=== PATIENT | female | born 1950 ===

== ENCOUNTER 2017-11-20 08:00 | Day surgery (SDC) | payer MEDICARE, OTHER ==
[2017-11-20] MEDS ORDERED: Lactated Ringer's 500 ML IV ONE (08:39)
[2017-11-20 08:43] VITALS: TEMP 96.8
[2017-11-20] MEDS ORDERED: Midazolam 2 MG/2 ML VIAL ONE (10:14)
[2017-11-20] MEDS ORDERED: Propofol 10 mg/ml Inj (20 ML) ONE ×2 (10:14→10:47)
[2017-11-20 11:09] VITALS: BP 117/66; PULSE 67; RESP 18; O2SAT 100
== END 2017-11-20 11:13 | disposition home or self-care (01) ==
LOC: H.ENDO 08:00
PROVIDERS: ATTEND Internal Medicine Gastroenterology
DX: Z12.11 Encounter for screening for malignant neoplasm of colon (principal); J45.909 Unspecified asthma, uncomplicated; E78.5 Hyperlipidemia, unspecified; I10 Essential (primary) hypertension; K64.8 Other hemorrhoids; K57.30 Diverticulosis of large intestine without perforation or abscess without bleeding
CPT/HCPCS: 45378; J2001; J2250; J2704; J7120

== ENCOUNTER 2018-08-03 16:52 | Inpatient (IN) | payer MEDICARE, OTHER ==
[2018-08-03] MEDS ORDERED: Sodium Chloride 0.9% 1,000 ML IV STA (17:50)
--- NOTE | 2018-08-03 17:56 | ED PDOC ---
HPI: Chest Pain Time Seen by Provider: 08/03/18 17:36 Chief Complaint (Nursing): Palpitations Chief Complaint (Provider): palpations History Per: Patient History/Exam Limitations: no limitations Onset/Duration Of Symptoms: Days (today morning) Current Symptoms Are (Timing): Still Present Additional Complaint(s): Pt. with palpitations since today morning with dizziness, blurry vision. All present when she woke up. Yesterday she had no issues. Has chest pain and dy spnea with the palpitations off and on. No nausea, vomit, diarrhea, headaches, abd pain, numbness, tingles. Has weakness all over. No recent injury, bleeding. Past Medical History Reviewed: Nursing Documentation, Vital Signs Vital Signs: Last Vital Signs Temp 97.2 F L 08/03/18 17:23 Pulse Resp 113 H 08/03/18 17:23 BP 90/70 L 08/03/18 17:23 Pulse Ox 97 08/03/18 17:23 - Medical History PMH: Arthritis, Asthma, HTN, Hypercholesterolemia Denies: Chronic Kidney Disease Other PMH: tachycardia - Surgical History Surgical History: Endoscopy - Family History Family History: States: Unknown Family Hx - Immunization History Hx Tetanus Toxoid Vaccination: Yes Hx Influenza Vaccination: Yes Hx Pneumococcal Vaccination: Yes - Home Medications Home Medications: Ambulatory Orders Medication Instructions Recorded Hydrochlorothiazide [HCTZ] 25 mg PO DAILY 11/16/15 Montelukast [Singulair] 10 mg PO DAILY 11/16/15 Simvastatin [Zocor] 40 mg PO DAILY 11/16/15 - Allergies Allergies/Adverse Reactions: Allergies Allergy/AdvReac Type Severity Reaction Status Date / Time Iodinated Contrast- Oral and Allergy ITCHING Verified 08/03/18 17:22 IV Dye [Iodinated Contrast Media - Oral and] Sulfa (Sulfonamide Allergy ITCHING Verified 08/03/18 17:22 Antibiotics) Review of Systems ROS Statement: Except As Marked, All Systems Reviewed And Found Negative Constitutional: Positive for: Weakness Cardiovascular: Positive for: Chest Pain, Palpitations, Light Headedness Neurological: Positive for: Weakness, Dizziness Physical Exam - Reviewed Nursing Documentation Reviewed: Yes Vital Signs Reviewed: Yes - Physical Exam Appears: Positive for: Uncomfortable Head Exam: Positive for: ATRAUMATIC, NORMAL INSPECTION, NORMOCEPHALIC Skin: Positive for: Normal Color, Warm, DRY Eye Exam: Positive for: EOMI, Normal appearance, PERRL ENT: Positive for: Normal ENT Inspection Neck: Positive for: Normal, Painless ROM Cardiovascular/Chest: Positive for: Tachycardia, Irregularly Irregular Respiratory: Positive for: CNT, Normal Breath Sounds Gastrointestinal/Abdominal: Positive for: Normal Exam, Soft. Negative for: Tenderness Back: Positive for: Normal Inspection. Negative for: L CVA Tenderness, R CVA Tenderness Extremity: Positive for: Normal ROM. Negative for: Tenderness, Pedal Edema Neurological/Psych: Positive for: Awake, Alert, Normal Tone, Oriented, heel nail rasper II- XII. Negative for: Lethargic, Listless, Motor/Sensory Deficits - Laboratory Results Result Diagrams: 08/03/18 18:36 08/03/18 18:36 Interpretation Of Abn Labs: 0.154 trop - ECG ECG: Positive for: Interpreted By Me, Viewed By Me Interpretation Of Abn EKG: afib O2 Sat by Pulse Oximetry: 97 - Radiology X-Ray: Interpreted by Me, Viewed By Me X-Ray Interpretation: No Acute Disease - CT Scan/US ct Other Rad Studies (CT/US): Read By Radiologist Other Rad Interpretation: no acute - Progress ED Course And Treament: 2022: Stable. AAOx3. Pain free. HR controlled with no drip. Pt. admitted to Dr. Avendaño. He wants Dr. Dial for cards. 2029: Spoke with Dr. Dial. States continue lovenox. No aspirin. Will consult. Disposition - Clinical Impression Clinical Impression: Afib, Elevated troponin - Patient ED Disposition Is Patient to be Admitted: No Counseled Patient/Family Regarding: Studies Performed, Diagnosis - Disposition Disposition Time: 19:00 Condition: FAIR - Pt Status Changed To: Hospital Disposition Of: Inpatient - Admit Certification Admit to Inpatient:: After my assessment, the patient will require hospitalization for at least two midnights. This is because of the severity of symptoms shown, intensity of services needed, and/or the medical risk in this patient being treated as an outpatient. - POA Present On Arrival: None
[2018-08-03 18:42] LABS: BASO % 0.3 % (0.0-2.0); EOS % 0.8 % (0.0-4.0); LYMPH # 1.7 K/uL (1.0-4.3); LYMPH % 29.7 % (20.0-40.0); MEAN CELL VOLUME 86.7 fl (81.0-99.0); MEAN CORPUSCULAR HEMOGLOBIN 29.1 pg (27.0-31.0); MEAN CORPUSCULAR HGB CONC 33.6 g/dL (33.0-37.0); MEAN PLATELET VOLUME 9.1 fl (7.2-11.7); MONO # 0.4 K/uL (0.0-0.8); NEUT # 3.5 K/uL (1.8-7.0); NEUT % 62.2 % (50.0-75.0); NRBC % 0.2 % (0.0-0.0); RBC 4.45 Mil/uL (3.80-5.20); RED CELL DISTRIBUTION WIDTH 14.4 % (11.5-14.5); WHITE BLOOD COUNT 5.7 K/uL (4.8-10.8)
[2018-08-03 18:46] LABS: INR 1.1
[2018-08-03 18:49] LABS: PARTIAL THROMBOPLASTIN TIME 32.5 Seconds (25.6-37.1)
[2018-08-03 18:52] LABS: ALB/GLOB RATIO 1.6 (1.0-2.1); ALBUMIN 4.2 g/dL (3.5-5.0); ALT/SGPT 36 U/L (9-52); AST/SGOT 31 U/L (14-36); BLOOD UREA NITROGEN 28 mg/dl (7-17); CALCIUM 9.2 mg/dL (8.4-10.2); GFR NON-AFRICAN AMERICAN > 60
[2018-08-03] MEDS ORDERED: Enoxaparin 80 mg Syringe SC STA (20:12)
[2018-08-04] MEDS: Pravastatin Sodium 20 MG TAB PO SCH ×2 (00:40→21:49)
[2018-08-04 06:41] LABS: BASO % 0.3 % (0.0-2.0); EOS # 0.1 K/uL (0.0-0.7); HEMOGLOBIN 12.2 g/dL (12.0-16.0); LYMPH # 2.8 K/uL (1.0-4.3); MEAN CELL VOLUME 87.8 fl (81.0-99.0); MEAN CORPUSCULAR HEMOGLOBIN 29.4 pg (27.0-31.0); MEAN CORPUSCULAR HGB CONC 33.5 g/dL (33.0-37.0); MEAN PLATELET VOLUME 9.2 fl (7.2-11.7); MONO # 0.7 K/uL (0.0-0.8); MONO % 11.1 % (0.0-10.0); NEUT # 2.7 K/uL (1.8-7.0); NEUT % 42.6 % (50.0-75.0); NRBC % 0.1 % (0.0-0.0); RBC 4.15 Mil/uL (3.80-5.20); RED CELL DISTRIBUTION WIDTH 14.1 % (11.5-14.5); WHITE BLOOD COUNT 6.3 K/uL (4.8-10.8)
[2018-08-04 07:20] LABS: ALB/GLOB RATIO 1.4 (1.0-2.1); ALBUMIN 3.5 g/dL (3.5-5.0); ALT/SGPT 29 U/L (9-52); AST/SGOT 24 U/L (14-36); B-TYPE NATRIURETIC PEPTIDE 2860 pg/ml (0-900); BLOOD UREA NITROGEN 22 mg/dl (7-17); CALCIUM 8.6 mg/dL (8.4-10.2); GFR NON-AFRICAN AMERICAN > 60
--- NOTE | 2018-08-04 08:54 | RAD ---
Date of service: 08/03/2018 HISTORY: dyspnea COMPARISON: Chest radiographs 04/23/2016. TECHNIQUE: 1 view obtained. FINDINGS: LUNGS: Diminished linear atelectasis right base with underlying linear fibrosis likely present. No infiltrates bilaterally. PLEURA: No significant pleural effusion identified, no pneumothorax apparent. CARDIOVASCULAR: Calcific atherosclerotic changes are seen related to the thoracic aorta. Normal cardiac size. No pulmonary vascular congestion. OSSEOUS STRUCTURES: No significant abnormalities. VISUALIZED UPPER ABDOMEN: Normal. OTHER FINDINGS: None. IMPRESSION: No interval acute cardiopulmonary disease appreciated. Diminished linear atelectasis right base with limited underlying fibrosis noted.
[2018-08-04] MEDS: FLUTICASONE PROPION/SALMETEROL 113MCG/14MCG 60 PUFF IH SCH ×2 (09:13→16:47)
[2018-08-04] MEDS: Enoxaparin 40 mg Syringe SC SCH (09:13)
--- NOTE | 2018-08-04 10:22 | CARD ---
APPROVED REPORT Date of service: 08/03/2018 EKG Measurement Heart [id number] <Conclusion> Atrial fibrillation with rapid ventricular response Septal infarct, age undetermined Abnormal ECG
[2018-08-04] MEDS ORDERED: Digoxin 500 mcg/2ml (0.5 mg/2ml) Inj IVP ONE (11:17)
[2018-08-04 11:28] VITALS: PULSE 120
--- NOTE | 2018-08-04 11:38 | CP.PCM.CON ---
History of Present Illness - History of Present Illness History of Present Illness: I was asked to evaluate patient by Dr Avendaño. 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 She was running up the stairs and developed sudden elevatin in heart rate. She became lightheaded and dyspneic. She was found to be in atrial fibrillation with rapid ventricular response. She has no previous history of atrial fibrillation. Review of Systems - Constitutional Constitutional: absent: As Per HPI, Anorexia, Chills, Daytime Sleepiness, Excessive Sweating, Fatigue, Fever, Frequent Falls, Headache, Increased Appetite, Lethargy, Malaise, Night Sweats, Snoring, Sleep Apnea, Weight Gain, Weight Loss, Weakness, Other - EENT Eyes: absent: As Per HPI, Blind Spots, Blurred Vision, Change in Vision, Decreased Night Vision, Diplopia, Discharge, Dry Eye, Exophthalmos, Floaters, Irritation, Itchy Eyes, Loss of Peripheral Vision, Pain, Photophobia, Requires Corrective Lenses, Sees Flashes, Spots in Vision, Tunnel Vision, Other Visual Disturbances, Loss of Vision, Other Ears: absent: As Per HPI, Decreased Hearing, Ear Discharge, Ear Pain, Tinnitus, Abnormal Hearing, Disequilibrium, Dizziness, Other Nose/Mouth/Throat: absent: As Per HPI, Epistaxis, Nasal Congestion, Nasal Discharge, Nasal Obstruction, Nasal Trauma, Nose Pain, Post Nasal Drip, Sinus Pain, Sinus Pressure, Bleeding Gums, Change in Voice, Dental Pain, Dry Mouth, Dysphagia, Halitosis, Hoarsness, Lip Swelling, Mouth Lesions, Mouth Pain, Odynophagia, Sore Throat, Throat Swelling, Tongue Swelling, Facial Pain, Neck Pain, Neck Mass, Other - Cardiovascular Cardiovascular: Dyspnea, Palpitations, Rapid Heart Rate - Respiratory Respiratory: Dyspnea - Gastrointestinal Gastrointestinal: absent: As Per HPI, Abdominal Pain, Belching, Bloating, Change in Bowel Habits, Change in Stool Character, Coffee Ground Emesis, Constipation, Cramping, Diarrhea, Dyspepsia, Dysphagia, Early Satiety, Excessive Flatus, Fecal Incontinence, Heartburn, Hematemesis, Hematochezia, Loose Stools, Melena, Nausea, Odynophagia, Temesmus, Vomiting, Other - Genitourinary Genitourinary: absent: As Per HPI, Change in Urinary Stream, Difficulty Urinating, Dysuria, Flank Pain, Hematuria, Pyuria, Nocturia, Urinary Incontinence, Urinary Frequency, Urinary Hesitance, Urinary Urgency, Voiding Freq/Small Amts, Freq UTI, Hx Renal/Bladder Calculi, Hx /Renal Surgery, Bladder Distension, Other - Musculoskeletal Musculoskeletal: absent: As Per HPI, Abnormal Gait, Arthralgias, Atrophy, Back Pain, Deformity, Joint Swelling, Limited Range of Motion, Loss of Height, Muscle Cramps, Muscle Weakness, Myalgias, Neck Pain, Numbness, Radiating Pain into Limb, Stiffness, Tingling, Other - Integumentary Integumentary: absent: As Per HPI, Acne, Alopecia, Bleeding Lesions, Change in Hair, Change in Nails, Change in Pigmentation, Changing Lesions, Dry Skin, Erythema, Furuncle, Hirsutism, Lesions, New Lesions, Non-Healing Lesions, Photo sensitivity, Pruritus, Rash, Skin Pain, Skin Ulcer, Sores, Striae, Swelling, Unusual Bruising, Wounds, Jaundice, Other - Neurological Neurological: absent: As Per HPI, Abnormal Gait, Abnormal Hearing, Abnormal Movements, Abnormal Speech, Behavioral Changes, Burning Sensations, Confusion, Convulsions, Disequilibrium, Dizziness, Numbness, Focal Weakness, Frequent Falls, Headaches, Lack of Coordination, Loss of Vision, Memory Loss, Paresthesias, Radicular Pain, Restless Legs, Sensory Deficit, Syncope, Tingling, Tremor, Vertigo, Weakness, Other Visual Disturbances, Other - Psychiatric Psychiatric: absent: As Per HPI, Abnormal Sleep Pattern, Anhedonia, Anxiety, Auditory Hallucinations, Behavioral Changes, Change in Appetite, Change in Libido, Confusion, Depression, Difficulty Concentrating, Hallucinations, Homicidal Ideation, Hopelessness, Irritability, Memory Loss, Mood Swings, Panic Attacks, Paranoia, Suicidal Ideation, Visual Hallucinations, Tactile Hallucinations, Other - Endocrine Endocrine: absent: As Per HPI, Change in Body Appearance, Change in Libido, Cold Intolorance, Deepening of Voice, Excessive Sweating, Fatigue, Flushing, Heat Intolorance, Increase in Ring/Shoe/Hat Size, Palpitations, Polydipsia, Polyphagia, Polyuria, Other - Hematologic/Lymphatic Hematologic: absent: As Per HPI, Easy Bleeding, Easy Bruising, Lymphadenopathy, Other Past Patient History - Past Medical History & Family History Past Medical History?: Yes - Past Social History Smoking Status: Never Smoked - CARDIAC Hx Cardiac Disorders: Yes - PULMONARY Hx Respiratory Disorders: Yes - NEUROLOGICAL Hx Neurological Disorder: No - HEENT Hx HEENT Problems: No - RENAL Hx Chronic Kidney Disease: No - ENDOCRINE/METABOLIC Hx Endocrine Disorders: No - HEMATOLOGICAL/ONCOLOGICAL Hx AIDS: No Hx Human Immunodeficiency Virus (HIV): No - INTEGUMENTARY Hx Dermatological Problems: No - MUSCULOSKELETAL/RHEUMATOLOGICAL Hx Falls: No - GASTROINTESTINAL Hx Gastrointestinal Disorders: No - GENITOURINARY/GYNECOLOGICAL Hx Genitourinary Disorders: No - PSYCHIATRIC Hx Substance Use: No - SURGICAL HISTORY Hx Surgeries: Yes Hx Orthopedic Surgery: Yes - ANESTHESIA Hx Anesthesia: Yes Hx Anesthesia Reactions: No Hx Malignant Hyperthermia: No Meds Allergies/Adverse Reactions: Allergies Allergy/AdvReac Type Severity Reaction Status Date / Time Iodinated Contrast- Oral and Allergy ITCHING Verified 08/03/18 17:22 IV Dye [Iodinated Contrast Media - Oral and] Sulfa (Sulfonamide Allergy ITCHING Verified 08/03/18 17:22 Antibiotics) - Medications Medications: Current Medications Acetaminophen (Tylenol 325mg Tab) 650 mg PO Q6 PRN PRN Reason: Pain, moderate (4-7) Enoxaparin Sodium (Lovenox) 40 mg SC DAILY [facility]; Protocol Last Admin: 08/04/18 09:13 Dose: 40 mg Diltiazem HCl 125 mg/ Sodium (Chloride) 125 mls @ 5 mls/hr IV .Q24H ONE; Protocol Stop: 08/05/18 08:29 Last Admin: 08/04/18 09:12 Dose: 5 mg/hr, 5 mls/hr Montelukast Sodium (Singulair) 10 mg PO [facility] Last Admin: 08/04/18 00:39 Dose: 10 mg Pravastatin Sodium (Pravachol) 20 mg PO [facility] Last Admin: 08/04/18 00:40 Dose: 20 mg Physical Exam - Constitutional Appears: Non-toxic - Head Exam Head Exam: NORMAL INSPECTION - Eye Exam Eye Exam: Normal appearance - ENT Exam ENT Exam: Mucous Membranes Moist - Neck Exam Neck exam: Positive for: Full Rom - Respiratory Exam Respiratory Exam: Decreased Breath Sounds - Cardiovascular Exam Cardiovascular Exam: Tachycardia, Irregular Rhythm - GI/Abdominal Exam GI & Abdominal Exam: Normal Bowel Sounds - Rectal Exam Rectal Exam: Deferred - Extremities Exam Extremities exam: Negative for: pedal edema - Back Exam Back exam: NORMAL INSPECTION - Neurological Exam Neurological exam: Alert, Oriented x3 - Psychiatric Exam Psychiatric exam: Normal Affect - Skin Skin Exam: Normal Color Results - Vital Signs Recent Vital Signs: Last Vital Signs Temp 98.1 F 08/04/18 08:18 Pulse 74 08/04/18 08:18 Resp 18 08/04/18 08:18 BP 94/62 L 08/04/18 11:21 Pulse Ox 98 08/04/18 08:18 - Labs Result Diagrams: 08/04/18 04:30 08/04/18 04:30 Labs: Laboratory Results - last 24 hr 08/03/18 08/03/18 08/03/18 17:58 18:36 18:36 WBC 5.7 D RBC 4.45 Hgb 13.0 Hct 38.6 MCV 86.7 MCH 29.1 MCHC 33.6 RDW 14.4 Plt Count 207 MPV 9.1 Neut % (Auto) 62.2 Lymph % (Auto) 29.7 [place] % (Auto) 7.0 Eos % (Auto) 0.8 Baso % (Auto) 0.3 Neut # (Auto) 3.5 Lymph # (Auto) 1.7 [place] # (Auto) 0.4 Eos # (Auto) 0.0 Baso # (Auto) 0.0 PT INR APTT Sodium 134 Potassium 4.0 Chloride 98 Carbon Dioxide 23 Anion Gap 17 BUN 28 H Creatinine 0.9 Est GFR ( Amer) > 60 Est GFR (Non-Af Amer) > 60 POC Glucose (mg/dL) 98 Random Glucose 97 Calcium 9.2 Phosphorus Magnesium Total Bilirubin 0.5 AST 31 ALT 36 Alkaline Phosphatase 68 Troponin I 0.1540 H* NT-Pro-B Natriuret Pep Total Protein 6.9 Albumin 4.2 Globulin 2.7 Albumin/Globulin Ratio 1.6 08/03/18 08/04/18 08/04/18 18:36 04:30 04:30 WBC 6.3 RBC 4.15 Hgb 12.2 Hct 36.5 MCV 87.8 MCH 29.4 MCHC 33.5 RDW 14.1 Plt Count 189 MPV 9.2 Neut % (Auto) 42.6 L Lymph % (Auto) 44.0 H [place] % (Auto) 11.1 H Eos % (Auto) 2.0 Baso % (Auto) 0.3 Neut # (Auto) 2.7 Lymph # (Auto) 2.8 [place] # (Auto) 0.7 Eos # (Auto) 0.1 Baso # (Auto) 0.0 PT 12.0 INR 1.1 APTT 32.5 Sodium 141 Potassium 3.6 Chloride 109 H Carbon Dioxide 25 Anion Gap 11 BUN 22 H Creatinine 0.7 Est GFR ( Amer) > 60 Est GFR (Non-Af Amer) > 60 POC Glucose (mg/dL) Random Glucose 73 Calcium 8.6 Phosphorus 3.7 Magnesium 2.4 H Total Bilirubin 0.3 AST 24 ALT 29 Alkaline Phosphatase 59 Troponin I 0.1790 H* NT-Pro-B Natriuret Pep 2860 H Total Protein 6.0 L Albumin 3.5 Globulin 2.5 Albumin/Globulin Ratio 1.4 - EKG Data EKG Interpreted by: Myself Assessment & Plan (1) Atrial fibrillation Assessment and Plan: unclear etiology. I will use cardizem and digoxin for rate control. recommend anticoagulation with lovenox. echocardiogram to assess LV function. Discussed the etiology of atrial fibrillation and all possible treatment modalities. Status: Acute
--- NOTE | 2018-08-04 12:02 | CT ---
Date of service: 08/03/2018 PROCEDURE: CT HEAD WITHOUT CONTRAST. HISTORY: headache COMPARISON: None available. TECHNIQUE: Axial computed tomography images were obtained through the head/brain without intravenous contrast. Radiation dose: Total exam DLP = 704.69 mGy-cm. This CT exam was performed using one or more of the following dose reduction techniques: Automated exposure control, adjustment of the mA and/or kV according to patient size, and/or use of iterative reconstruction technique. FINDINGS: HEMORRHAGE: No intracranial hemorrhage. BRAIN: Good corticomedullary differentiation is seen. There is minimal periventricular white matter lucency compatible with diffuse cerebral atrophy and chronic microangiopathy. No suspicious extra-axial fluid collection is identified and the midline brain anatomy appears grossly nonfocal as imaged. There is no mass effect throughout. VENTRICLES: Unremarkable. No hydrocephalus. CALVARIUM: Unremarkable. PARANASAL SINUSES: Unremarkable as visualized. No significant inflammatory changes. MASTOID AIR CELLS: Unremarkable as visualized. No inflammatory changes. OTHER FINDINGS: None. IMPRESSION: No acute intracranial findings appreciable. Limited age-appropriate age related neuro degenerative change present. Preliminary report provided by Clarisse, 08/03/2018, 7:59 p.m..
[2018-08-05] MEDS: FLUTICASONE PROPION/SALMETEROL 113MCG/14MCG 60 PUFF IH SCH ×2 (08:58→16:28)
[2018-08-05] MEDS: Enoxaparin 40 mg Syringe SC SCH (08:59)
--- NOTE | 2018-08-05 16:27 | CARD ---
APPROVED REPORT Date of service: 08/05/2018 EXAM: Two-dimensional and M-mode echocardiogram with Doppler and color Doppler. Other Information Quality : GoodRhythm : NSR INDICATION Chest Pain Palpitations 2D DIMENSIONS IVSd0.82 (0.7-1.1cm)LVDd4.24 (3.9-5.9cm) LVOT Diameter1.62 (1.8-2.4cm)PWd0.98 (0.7-1.1cm) IVSs1.15 (0.8-1.2cm)LVDs2.90 (2.5-4.0cm) FS (%) 31.6 %PWs0.99 (0.8-1.2cm) M-Mode DIMENSIONS Left Atrium (MM)5.03 (2.5-4.0cm)IVSd1.12 (0.7-1.1cm) Aortic Root2.88 (2.2-3.7cm)LVDd5.88 (4.0-5.6cm) Aortic Cusp Exc.2.06 (1.5-2.0cm)PWd1.12 (0.7-1.1cm) IVSs1.47 cmFS (%) 50 % LVDs2.94 (2.0-3.8cm)PWs1.41 cm Aortic Valve AoV Peak Iatvcrlo383.0cm/sAoV VTI31.0cmAO Peak GR.10mmHg LVOT Peak Lmdlphaj271.7cm/sLVOT VTI28.46cmAO Mean GR.5mmHg MARILYN (VMAX)1.05mh1CLJ (VTI)1.07cm2 Mitral Valve MV E Lgvieept03.9cm/sMV DECEL [id number] A Hejkatpk85.2cm/s MV QWY57fgN/A ratio1.5MVA (PHT)3.45cm2 TDI Lateral E' Peak V9.61cm/sMedial E' Peak V8.39cm/sE/Lateral E'8.5 E/Medial E'9.8 Tricuspid Valve TR Peak Wbmqfqlc810pw/sRAP DQLXHQQG61rnUlWE Peak Gr.28mmHg [id number] LEFT VENTRICLE The left ventricle is normal size. There is normal left ventricular wall thickness. The left ventricular systolic function is normal. The estimated ejection fraction is 55-60% No regional wall motion abnormalities noted.. Transmitral Doppler flow pattern is Grade II-pseudonormal filling dynamics. No left ventricle thrombus noted on this study. There is no ventricular septal defect visualized. There is no left ventricular aneurysm. There is no mass noted in the left ventricle. RIGHT VENTRICLE The right ventricle is normal size. There is normal right ventricular wall thickness. The right ventricular systolic function is normal. ATRIA The left atrium is mildly dilated. The right atrium size is normal. The interatrial septum is intact with no evidence for an atrial septal defect. AORTIC VALVE The aortic valve is normal in structure. No aortic regurgitation is present. There is no aortic valvular stenosis. There is no aortic valvular vegetation. MITRAL VALVE The mitral valve is normal in structure. There is no evidence of mitral valve prolapse. There is no mitral valve stenosis. There is trace mitral valve regurgitation noted. TRICUSPID VALVE The tricuspid valve is normal in structure. There is mild tricuspid valve regurgitation noted. RVSP is calculated at 33 mm Hg. There is no tricuspid valve prolapse or vegetation. There is no tricuspid valve stenosis. PULMONIC VALVE The pulmonary valve is normal in structure. There is no pulmonic valvular regurgitation. There is no pulmonic valvular stenosis. GREAT VESSELS The aortic root is normal in size. The ascending aorta is normal in size. The pulmonary artery is normal. The IVC is normal in size and collapses >50% with inspiration. PERICARDIAL EFFUSION There is no pericardial effusion. There is no pleural effusion. <Conclusion> The estimated ejection fraction is 55-60% Transmitral Doppler flow pattern is Grade II-pseudonormal filling dynamics. The left atrium is mildly dilated. There is trace mitral valve regurgitation noted. There is mild tricuspid valve regurgitation noted. RVSP is calculated at 33 mm Hg.
--- NOTE | 2018-08-05 19:12 | CP.PCM.PN ---
Subjective - Date & Time of Evaluation Date of Evaluation: 08/05/18 Time of Evaluation: 19:00 - Subjective Subjective: patient is doing well from a cardiac standpoint. now in sinus rhythm Objective - Vital Signs/Intake and Output Vital Signs (last 24 hours): Temp Pulse Resp BP Pulse Ox 97.7 F 78 18 104/66 97 08/05/18 15:55 08/05/18 16:28 08/05/18 16:28 08/05/18 16:28 08/05/18 16:28 Intake and Output: 08/05/18 08/06/18 18:59 06:59 Intake Total 120 Balance 120 - Medications Medications: Current Medications Acetaminophen (Tylenol 325mg Tab) 650 mg PO Q6 PRN PRN Reason: Pain, moderate (4-7) Diltiazem HCl (Cardizem) 30 mg PO Q6H [facility] Last Admin: 08/05/18 16:28 Dose: 30 mg Enoxaparin Sodium (Lovenox) 40 mg SC DAILY [facility]; Protocol Last Admin: 08/05/18 08:59 Dose: 40 mg Montelukast Sodium (Singulair) 10 mg PO HS [facility] Last Admin: 08/04/18 21:49 Dose: 10 mg Pravastatin Sodium (Pravachol) 20 mg PO HS [facility] Last Admin: 08/04/18 21:49 Dose: 20 mg Trazodone HCl (Desyrel) 50 mg PO HS PRN PRN Reason: Insomnia - Labs Labs: 08/04/18 04:30 08/04/18 04:30 PT 12.0 Seconds (9.8-13.1) 08/03/18 18:36 INR 1.1 08/03/18 18:36 APTT 32.5 Seconds (25.6-37.1) 08/03/18 18:36 - Constitutional Appears: Non-toxic - Head Exam Head Exam: NORMAL INSPECTION - Eye Exam Eye Exam: Normal appearance - ENT Exam ENT Exam: Mucous Membranes Moist - Neck Exam Neck Exam: Full ROM - Respiratory Exam Respiratory Exam: NORMAL BREATHING PATTERN - Cardiovascular Exam Cardiovascular Exam: REGULAR RHYTHM - GI/Abdominal Exam GI & Abdominal Exam: Normal Bowel Sounds - Rectal Exam Rectal Exam: Deferred - Extremities Exam Extremities Exam: absent: Normal Inspection - Back Exam Back Exam: NORMAL INSPECTION - Neurological Exam Neurological Exam: Alert - Psychiatric Exam Psychiatric exam: Normal Affect - Skin Skin Exam: Normal Color Assessment and Plan (1) Atrial fibrillation Assessment & Plan: now in sinus rhythm. echocardiogram reveals normal LV function. I recommend change to cardizem 120 mg daily. can d/c home from cardiac standpoint. no an ticoagulation needed Status: Acute
--- NOTE | 2018-08-05 19:46 | CP.PCM.HP ---
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 Patient was seen and evaluated in ED, found to be in Afib with RVR. Patient denies history of a fib. Cardiology was consulted and cardizem was started Patient was seen and examined at bedside. States improvement from admission though continues to have palpitations. No other complaints offered at this time allergies: as per chart meds: as per chart fam hx: non contributory Present on Admission - Present on Admission Any Indicators Present on Admission: No Review of Systems - Review of Systems All systems: reviewed and no additional remarkable complaints except (mentioned above) Past Patient History - Past Medical History & Family History Past Medical History?: Yes - Past Social History Smoking Status: Never Smoked - CARDIAC Hx Cardiac Disorders: Yes - PULMONARY Hx Respiratory Disorders: Yes - NEUROLOGICAL Hx Neurological Disorder: No - HEENT Hx HEENT Problems: No - RENAL Hx Chronic Kidney Disease: No - ENDOCRINE/METABOLIC Hx Endocrine Disorders: No - HEMATOLOGICAL/ONCOLOGICAL Hx AIDS: No Hx Human Immunodeficiency Virus (HIV): No - INTEGUMENTARY Hx Dermatological Problems: No - MUSCULOSKELETAL/RHEUMATOLOGICAL Hx Falls: No - GASTROINTESTINAL Hx Gastrointestinal Disorders: No - GENITOURINARY/GYNECOLOGICAL Hx Genitourinary Disorders: No - PSYCHIATRIC Hx Substance Use: No - SURGICAL HISTORY Hx Surgeries: Yes Hx Orthopedic Surgery: Yes - ANESTHESIA Hx Anesthesia: Yes Hx Anesthesia Reactions: No Hx Malignant Hyperthermia: No Meds Allergies/Adverse Reactions: Allergies Allergy/AdvReac Type Severity Reaction Status Date / Time Iodinated Contrast- Oral and Allergy ITCHING Verified 08/03/18 17:22 IV Dye [Iodinated Contrast Media - Oral and] Sulfa (Sulfonamide Allergy ITCHING Verified 08/03/18 17:22 Antibiotics) Physical Exam - Constitutional Appears: Non-toxic, No Acute Distress - Head Exam Head Exam: NORMAL INSPECTION - Eye Exam Eye Exam: Normal appearance - Neck Exam Neck exam: Positive for: Normal Inspection - Respiratory Exam Respiratory Exam: NORMAL BREATHING PATTERN - Cardiovascular Exam Cardiovascular Exam: Tachycardia, Irregular Rhythm - GI/Abdominal Exam GI & Abdominal Exam: Soft - Extremities Exam Extremities exam: Positive for: normal inspection - Back Exam Back exam: NORMAL INSPECTION - Neurological Exam Neurological exam: Alert, Oriented x3 - Psychiatric Exam Psychiatric exam: Normal Affect, Normal Mood - Skin Skin Exam: Normal Color, Warm Results - Vital Signs Recent Vital Signs: Last Vital Signs Temp 97.7 F 08/05/18 15:55 Pulse 78 08/05/18 16:28 Resp 18 08/05/18 16:28 BP 104/66 08/05/18 16:28 Pulse Ox 97 08/05/18 16:28 - Labs Result Diagrams: 08/04/18 04:30 08/04/18 04:30 Assessment & Plan (1) Atrial fibrillation Status: Acute (2) Elevated troponin Status: Acute - Assessment and Plan (Free Text) Plan: available diagnostic data reviewed monitor labs monitor vitals on cardizem drip cardiology on board, appreciate recommendations trend troponins rest of plan as ordered
--- NOTE | 2018-08-05 19:54 | CP.PCM.PN ---
Subjective - Date & Time of Evaluation Date of Evaluation: 08/05/18 Time of Evaluation: 09:00 - Subjective Subjective: patient seen and examined at bedside. Interim events noted No complaints offered at this time, no palpitations denies cp/sob/fever/chills. available diagnostic data reviewed Review of Systems All systems: reviewed and no additional remarkable complaints except mentioned above Objective Vital Signs Stable - Constitutional Appears: Non-toxic, No Acute Distress Head Exam: NORMAL INSPECTION Eye Exam: Normal appearance Respiratory Exam: NORMAL BREATHING PATTERN Cardiovascular Exam: +S1, +S2 GI & Abdominal Exam: Soft Neurological Exam: Alert, Awake Psychiatric exam: Normal Affect, Normal Mood Skin Exam: Normal Color, Warm Assessment and Plan monitor vitals monitor labs Cont meds Cont tx consultants appreciated input echo completed troponin now negative rest of plan as ordered Objective - Vital Signs/Intake and Output Vital Signs (last 24 hours): Temp Pulse Resp BP Pulse Ox 97.7 F 78 18 104/66 97 08/05/18 15:55 08/05/18 16:28 08/05/18 16:28 08/05/18 16:28 08/05/18 16:28 Intake and Output: 08/05/18 08/06/18 18:59 06:59 Intake Total 120 Balance 120 - Medications Medications: Current Medications Acetaminophen (Tylenol 325mg Tab) 650 mg PO Q6 PRN PRN Reason: Pain, moderate (4-7) Diltiazem HCl (Cardizem) 30 mg PO Q6H [facility] Last Admin: 08/05/18 16:28 Dose: 30 mg Enoxaparin Sodium (Lovenox) 40 mg SC DAILY [facility]; Protocol Last Admin: 08/05/18 08:59 Dose: 40 mg Montelukast Sodium (Singulair) 10 mg PO HS [facility] Last Admin: 08/04/18 21:49 Dose: 10 mg Pravastatin Sodium (Pravachol) 20 mg PO HS [facility] Last Admin: 08/04/18 21:49 Dose: 20 mg Trazodone HCl (Desyrel) 50 mg PO HS PRN PRN Reason: Insomnia - Labs Labs: 08/04/18 04:30 08/04/18 04:30 PT 12.0 Seconds (9.8-13.1) 08/03/18 18:36 INR 1.1 08/03/18 18:36 APTT 32.5 Seconds (25.6-37.1) 08/03/18 18:36 Assessment and Plan (1) Atrial fibrillation Status: Acute (2) Elevated troponin Status: Resolved
--- NOTE | 2018-08-05 20:53 | CP.PCM.CON ---
History of Present Illness - History of Present Illness History of Present Illness: 68 year old female with a history of HTN, HL, CLL on surveillance, presenting with palpitations, found to be in afib. The patient notes to taking stairs which led to palpitations and dizziness. Her symptoms failed to resolve and she came to the hospital. She is currently on cardizem and anticoagulation and notes to feeling better. In regards to her CLL, she has not required treatment and we have been monitoring her CBC q3 months. Past medical history: HTN, HL Past surgical history: Denies Family history: Denies hematologic and oncologic problems Social history: Denies tobacco, alcohol, and illicit drug use. Allergies: Contrast dye. Review of systems: All remaining review of systems including HEENT, cardiovascu lar, respiratory, gastrointestinal, genitourinary, musculoskeletal, dermatologic, neurologic, and psychiatric are negative unless mentioned in the HPI. Past Patient History - Past Medical History & Family History Past Medical History?: Yes - Past Social History Smoking Status: Never Smoked - CARDIAC Hx Cardiac Disorders: Yes - PULMONARY Hx Respiratory Disorders: Yes - NEUROLOGICAL Hx Neurological Disorder: No - HEENT Hx HEENT Problems: No - RENAL Hx Chronic Kidney Disease: No - ENDOCRINE/METABOLIC Hx Endocrine Disorders: No - HEMATOLOGICAL/ONCOLOGICAL Hx AIDS: No Hx Human Immunodeficiency Virus (HIV): No - INTEGUMENTARY Hx Dermatological Problems: No - MUSCULOSKELETAL/RHEUMATOLOGICAL Hx Falls: No - GASTROINTESTINAL Hx Gastrointestinal Disorders: No - GENITOURINARY/GYNECOLOGICAL Hx Genitourinary Disorders: No - PSYCHIATRIC Hx Substance Use: No - SURGICAL HISTORY Hx Surgeries: Yes Hx Orthopedic Surgery: Yes - ANESTHESIA Hx Anesthesia: Yes Hx Anesthesia Reactions: No Hx Malignant Hyperthermia: No Meds Allergies/Adverse Reactions: Allergies Allergy/AdvReac Type Severity Reaction Status Date / Time Iodinated Contrast- Oral and Allergy ITCHING Verified 08/03/18 17:22 IV Dye [Iodinated Contrast Media - Oral and] Sulfa (Sulfonamide Allergy ITCHING Verified 08/03/18 17:22 Antibiotics) - Medications Medications: Current Medications Acetaminophen (Tylenol 325mg Tab) 650 mg PO Q6 PRN PRN Reason: Pain, moderate (4-7) Diltiazem HCl (Cardizem) 30 mg PO Q6H [facility] Last Admin: 08/05/18 16:28 Dose: 30 mg Enoxaparin Sodium (Lovenox) 40 mg SC DAILY [facility]; Protocol Last Admin: 08/05/18 08:59 Dose: 40 mg Montelukast Sodium (Singulair) 10 mg PO HS [facility] Last Admin: 08/04/18 21:49 Dose: 10 mg Pravastatin Sodium (Pravachol) 20 mg PO HS [facility] Last Admin: 08/04/18 21:49 Dose: 20 mg Trazodone HCl (Desyrel) 50 mg PO HS PRN PRN Reason: Insomnia Physical Exam - Head Exam Head Exam: ATRAUMATIC - Eye Exam Eye Exam: Normal appearance - ENT Exam ENT Exam: Mucous Membranes Dry - Respiratory Exam Respiratory Exam: NORMAL BREATHING PATTERN - Cardiovascular Exam Cardiovascular Exam: +S1, +S2 - GI/Abdominal Exam GI & Abdominal Exam: Normal Bowel Sounds - Extremities Exam Extremities exam: Positive for: normal inspection - Neurological Exam Neurological exam: Oriented x3 - Psychiatric Exam Psychiatric exam: Normal Affect, Normal Mood - Skin Skin Exam: Warm Results - Vital Signs Recent Vital Signs: Last Vital Signs Temp 97.6 F 08/05/18 19:57 Pulse 88 08/05/18 19:57 Resp 18 08/05/18 19:57 BP 110/71 08/05/18 19:57 Pulse Ox 95 08/05/18 19:57 - Labs Result Diagrams: 08/04/18 04:30 08/04/18 04:30 Assessment & Plan (1) CLL (chronic lymphocytic leukemia) Assessment and Plan: has not required treatment on surveillance will monitor CBC Thank you for this interesting consult. Status: Acute
[2018-08-05] MEDS: Pravastatin Sodium 20 MG TAB PO SCH (21:39)
[2018-08-06 07:47] VITALS: O2SAT 94
[2018-08-06] MEDS: Enoxaparin 40 mg Syringe SC SCH (09:55)
[2018-08-06] MEDS: FLUTICASONE PROPION/SALMETEROL 113MCG/14MCG 60 PUFF IH SCH (09:55)
[2018-08-06 12:07] VITALS: BP 103/68; PULSE 78; RESP 20; TEMP 97.8
--- NOTE | 2018-08-07 22:56 | CP.PCM.DIS ---
Provider - Provider Date of Admission: 08/03/18 20:23 Attending physician: Gordy Avendaño MD Consults: 08/03/18 20:29 Cardiology Consult Stat Comment: Consulting Provider: Immanuel Dial Consulting Physician: Immanuel Dial Reason for Consult: elevated trop and afib 08/04/18 11:28 Hematology Oncology Consult Routine Comment: Consulting Provider: Ross Conn Consulting Physician: Ross Conn Reason for Consult: h/o leukemia Time Spent in preparation of Discharge (in minutes): 30 Hospital Course - Lab Results Lab Results: Most Recent Lab Values WBC 6.3 K/uL (4.8-10.8) 08/04/18 04:30 RBC 4.15 Mil/uL (3.80-5.20) 08/04/18 04:30 Hgb 12.2 g/dL (12.0-16.0) 08/04/18 04:30 Hct 36.5 % (34.0-47.0) 08/04/18 04:30 MCV 87.8 fl (81.0-99.0) 08/04/18 04:30 MCH 29.4 pg (27.0-31.0) 08/04/18 04:30 MCHC 33.5 g/dL (33.0-37.0) 08/04/18 04:30 RDW 14.1 % (11.5-14.5) 08/04/18 04:30 Plt Count 189 K/uL (130-400) 08/04/18 04:30 MPV 9.2 fl (7.2-11.7) 08/04/18 04:30 Neut % (Auto) 42.6 % (50.0-75.0) L 08/04/18 04:30 Lymph % (Auto) 44.0 % (20.0-40.0) H 08/04/18 04:30 [place] % (Auto) 11.1 % (0.0-10.0) H 08/04/18 04:30 Eos % (Auto) 2.0 % (0.0-4.0) 08/04/18 04:30 Baso % (Auto) 0.3 % (0.0-2.0) 08/04/18 04:30 Neut # (Auto) 2.7 K/uL (1.8-7.0) 08/04/18 04:30 Lymph # (Auto) 2.8 K/uL (1.0-4.3) 08/04/18 04:30 [place] # (Auto) 0.7 K/uL (0.0-0.8) 08/04/18 04:30 Eos # (Auto) 0.1 K/uL (0.0-0.7) 08/04/18 04:30 Baso # (Auto) 0.0 K/uL (0.0-0.2) 08/04/18 04:30 PT 12.0 Seconds (9.8-13.1) 08/03/18 18:36 INR 1.1 08/03/18 18:36 APTT 32.5 Seconds (25.6-37.1) 08/03/18 18:36 Sodium 141 mmol/l (132-148) 08/04/18 04:30 Potassium 3.6 MMOL/L (3.6-5.0) 08/04/18 04:30 Chloride 109 mmol/L (98-107) H 08/04/18 04:30 Carbon Dioxide 25 mmol/L (22-30) 08/04/18 04:30 Anion Gap 11 (10-20) 08/04/18 04:30 BUN 22 mg/dl (7-17) H 08/04/18 04:30 Creatinine 0.7 mg/dl (0.7-1.2) 08/04/18 04:30 Est GFR ( Amer) > 60 08/04/18 04:30 Est GFR (Non-Af Amer) > 60 08/04/18 04:30 POC Glucose (mg/dL) 98 mg/dL (65-110) 08/03/18 17:58 Random Glucose 73 mg/dL (65-105) 08/04/18 04:30 Calcium 8.6 mg/dL (8.4-10.2) 08/04/18 04:30 Phosphorus 3.7 mg/dl (2.5-4.5) 08/04/18 04:30 Magnesium 2.4 MG/DL (1.6-2.3) H 08/04/18 04:30 Total Bilirubin 0.3 mg/dl (0.2-1.3) 08/04/18 04:30 AST 24 U/L (14-36) 08/04/18 04:30 ALT 29 U/L (9-52) 08/04/18 04:30 Alkaline Phosphatase 59 U/L (38-126) 08/04/18 04:30 Troponin I 0.1040 ng/mL (0.00-0.120) 08/04/18 13:00 NT-Pro-B Natriuret Pep 2860 pg/ml (0-900) H 08/04/18 04:30 Total Protein 6.0 G/DL (6.3-8.2) L 08/04/18 04:30 Albumin 3.5 g/dL (3.5-5.0) 08/04/18 04:30 Globulin 2.5 gm/dL (2.2-3.9) 08/04/18 04:30 Albumin/Globulin Ratio 1.4 (1.0-2.1) 08/04/18 04:30 - Hospital Course Hospital Course: The pt presented to the ED with blurry vision, weakness, and dizziness. EKG showed a-fib with RVR. The pt was placed on cardizem drip and cardiology was consulted. After rate control was achieved, the pt was discharged and sent home on PO cardizem 120 mg. Discharge Exam - Head Exam Head Exam: ATRAUMATIC - Eye Exam Eye Exam: EOMI, Normal appearance, PERRL Pupil Exam: NORMAL ACCOMODATION, PERRL - ENT Exam ENT Exam: Mucous Membranes Moist - Neck Exam Neck exam: Full Rom - Respiratory Exam Respiratory Exam: Clear to PA & Lateral, NORMAL BREATHING PATTERN - Cardiovascular Exam Cardiovascular Exam: Irregular Rhythm - GI/Abdominal Exam GI & Abdominal Exam: Normal Bowel Sounds, Unremarkable - Extremities Exam Extremities exam: full ROM - Back Exam Back exam: NORMAL INSPECTION - Neurological Exam Neurological exam: Alert, Oriented x3 - Psychiatric Exam Psychiatric exam: Normal Affect, Normal Mood - Skin Skin Exam: Dry, Normal Color, Warm Discharge Plan - Discharge Medications Prescriptions: Diltiazem HCl [Cardizem Cd] 120 mg PO DAILY #30 cap.er.24h - Follow Up Plan Condition: FAIR Disposition: HOME/ ROUTINE Instructions: Atrial Fibrillation (DC) Additional Instructions: kristofer mark con jeri [place] en 1 semana Referrals: Gordy Avendaño MD [Medical Doctor] - Immanuel Dial MD [Staff Provider] -
== END 2018-08-06 15:00 | disposition home or self-care (01) | DRG 309 ==
LOC: H.ER 16:52 → H.ERHOLD 20:23 → H.TEL 22:12
PROVIDERS: ADMIT Family Medicine; ATTEND Family Medicine
DX: I48.91 Unspecified atrial fibrillation (principal); C91.10 Chronic lymphocytic leukemia of B-cell type not having achieved remission; E78.00 Pure hypercholesterolemia, unspecified; E78.5 Hyperlipidemia, unspecified; J45.909 Unspecified asthma, uncomplicated; Z88.2 Allergy status to sulfonamides; Z91.041 Radiographic dye allergy status; I10 Essential (primary) hypertension; M19.90 Unspecified osteoarthritis, unspecified site; R74.8 Abnormal levels of other serum enzymes